=== PATIENT | male | born 1950 | race Caucasian/White ===

== ENCOUNTER 2018-03-11 15:28 | Inpatient (IN) | payer OTHER, MEDICAID ==
--- NOTE | 2018-03-11 15:24 | EDPHY ---
HPI/HX/ROS/PE/MDM Narrative: CHIEF COMPLAINT: Respiratory failure HISTORY OF PRESENT ILLNESS: The patient is a 67 y/o male arriving emergent via EMS for respiratory failure. Per EMS the patient was found unresponsive, pale, and cyanotic on a park bench. Initially the patient was vomiting blood from his airway, had clotted blood in his airway, and had O2Sats in the low 50's. He was tachycardic. The patient's BGL was 80 while en route. An IO was established in his right lower leg, Narcan was given with no change in status, and an OPA and NPA were placed as a [place] Airway was unable to be placed. The patient has been bucking at the OPA. The patient's skin color is now more pink than it was initially. Per prior medical records, this patient was seen in this emergency department on 02/22/18 for alcohol intoxication and in 2017 for abdominal pain. REVIEW OF SYSTEMS: Unable to obtain secondary to patient's mental status PAST MEDICAL HISTORY: Alcoholism SOCIAL HISTORY: Transient, single, not employed VITAL SIGNS: Reviewed by me GENERAL: Patient is face and head is covered with blood. He is agitated, not following simple commands. Patient is coughing and gagging on blood. Well- developed and well-nourished. HEENT: Atraumatic. Eyes: Left pupil is 3mm and reactive. Right pupils is 3mm and not reactive but cloudy. No icterus, bilateral scleral injection. Mouth: angioedema in posterior pharynx, uvula, and supraglottic area. Gag appears to be intact. Neck: swollen with no adenopathy. LUNGS: Bronchial breath sounds throughout, no rhonchi or rales. CARDIAC: Tachycardic, no rubs, murmurs or gallops. ABDOMEN: Obese, soft, nontender, nondistended, bowel sounds normal. RECTAL: Yellow stool present. BACK: No CVA tenderness. EXTREMITIES: No trauma. No edema. Range of motion is normal throughout. NEURO: Somnolent, not following commands, moving head around, grossly nonfocal. SKIN: Cyanotic from the upper chest and up across his face. PSYCHIATRIC: Unable to assess. Portions of this note were transcribed by a medical affairs manager. I personally performed a history, physical exam, medical decision making, and confirmed accuracy of information the transcribed note. ED Course: The patient is a 50 y/o male arriving emergent via EMS for respiratory failure. Per EMS the patient was found unresponsive with clotted blood in his airway on a park bench. An OPA and NPA were placed, but an advanced airway was unable to be placed as the patient's jaw was clamped down and he was vomiting blood. On exam the patient has bronchial breath sounds throughout, but he is breathing on his own. He is moving his head around, but is not moving any of his extremities. He is also cyanotic from the upper chest and across his face. He has blood and angioedema in his posterior pharynx, uvula, and supraglottic area. His pupils are both 3mm, but the right one is not reactive and cloudy. 1526: I met EMS upon arrival 1528: HR 132, O2sats 95 on bag valve, BP 205/190 1530: I will intubate this patient to protect his airway. Procedure: Rapid sequence intubation. Indication for the procedure was airway protection. The patient was preoxygenated with 100% oxygen by face mask. The patient was given the following IV medications: 20 mg IV Etomidate and 125 mg IV succinylcholine. The patient was orally endotracheally intubated under direct visualization with a 7.5 ETT utilizing the glide scope. Patient's supraglottic airway was angio edematous. Vocal cords were visible and the ET tube was placed through the cords on the 1st pass. Tracheal intubation was confirmed with misting on the tube; breath sounds were auscultated equally bilaterally; appropriate color change with [place] End Tidal CO2 detector. Chest X-ray shows ETT was slightly deep so it was moved back to be in good position. There is also scattered atelectasis on the chest x-ray. The procedure was performed by myself, Dr. Hassan. 1531: HR 113, O2Sats 94, BP 171/141 1535: 125 mg IV Solu-Medrol and 50 mg IV Benadryl administered for patient's angioedema. Labs, EKG, head CT, c-spine CT, and chest CT ordered. 1536: 12-LEAD EKG: Please see the full report in [facility]. My interpretation: Sinus tachycardia with a rate of 133, borderline repolarization abnormality in diffuse leads. 1537: HR 138, O2Sats 99, BP 212/126 1556: Patient's lactate is 7.7 and his creatinine is 1.4; further lab results still pending. 1617: Reassessed patient as he has returned from CT. He has blood coming out of his nose and around his mouth. I performed a rectal exam to evaluate for a gastrointestinal source of bleeding. This was negative for gross blood. Sent for occult blood which was also negative. 1633: I spoke with the radiologist regarding patient's CT findings. There are no acute findings on his head CT. His C-spine CT reveals diffuse mucosal thickening and edema in the pharynx. The chest CT reveals fluid in the right lower lobe, atelectasis, and a hiatal hernia. CT of the chest most likely is indicative of aspiration pneumonia. CT scan of the chest with cuts going onto the neck demonstrated diffuse mucosal thickening and edema of the hypopharynx and the airway to the level of the cords. There is no abscess seen. 1640: I consulted with Dr. Escalante, hospitalist, who agrees to admit this patient. Patients blood alcohol level is 399. Flagyl, Ceftriaxone, and IV NS administered for possible aspirational pneumonia, as well as to cover the patient's upper airway as a source of potential infection. Blood cultures ordered. 1730: Reassessed patient, he is still tachycardic. Patient be transferred to the floor. Critical care time spent by me, Dr. Hassan exclusively with this patient was 45 minutes, exclusive of PA time and exclusive of procedures. The organ system at risk was respiratory, airway, and I gave IVF, antibiotics, performed intubation to prevent worsening of the patients condition. Critical care time included obtaining history, performing a physical exam, bedside monitoring of interventions, collecting and interpreting tests and discussion with consultants but not including time spent performing procedures. MDM: Differential diagnoses for the patient's symptom complex was considered including but not limited to respiratory failure, aspiration, angioedema related to medications, allergic reaction, infectious cause of upper airway edema, drug or alcohol use. - Data Points Imaging Results: Imaging Impressions Chest X-Ray 03/11/18 15:31 Impression: 1. Endotracheal tube tip 2 cm above the nilay. 2. Peribronchial thickening, which could be related to fluid overload or bronchitis, with mild basilar atelectasis. Head CT 03/11/18 15:42 Impression: Moderate periventricular white matter disease; otherwise negative noncontrast CT of the head. Results called to Dr. Mary Hassan at 4:30 PM at the time of the interpretation. Cervical Spine CT 03/11/18 15:47 Impression: 1. Negative noncontrast CT of the cervical spine. Results called to Dr. Hassan at 4:30 PM. Imaging: Discussed imaging studies w/ call center representative Radiologist, I viewed and interpreted images myself Laboratory Results: Laboratory Results 03/11/18 15:33 03/11/18 15:33 03/11/18 03/11/18 03/11/18 16:25 16:21 15:46 WBC RBC Hgb POC Hgb Hct POC Hct MCV MCH MCHC RDW Plt Count MPV Neut % (Auto) Lymph % (Auto) [place] % (Auto) Eos % (Auto) Baso % (Auto) Nucleat RBC Rel Count Absolute Neuts (auto) Absolute Lymphs (auto) Absolute Monos (auto) Absolute Eos (auto) Absolute Basos (auto) Absolute Nucleated RBC Immature Gran % Immature Gran # RBC/WBC/PLT Morphology Platelet Estimate Oval Macrocytes PT INR Puncture Site RIGHT RADIAL Patient Temperature 34.6 DEGREES DEGREES pCO2 34 mmHg mmHg (34-38) pO2 340 mmHg H mmHg (65-75) Total CO2 14 mEq/L L mEq/L (23-27) ABG pH 7.20 L (7.35-7.45) ABG PO2/FiO2 Ratio 340 RATIO RATIO ABG HCO3 13 mEq/L L mEq/L (22-26) ABG O2 Saturation 99 % H % (92-95) ABG Base Excess -14.5 mEq/L L mEq/L (-2.5-2.5) ABG Lactic Acid 6.8 mmol/L H mmol/L (0.5-1.6) VBG Lactic Acid O2 Concentration % 100 % % (0-100) Respiration Rate 14 Set Respiration Rate 14 Assist Control YES Inspiratory Time 0.9 SECS SECS Tidal Volume 600 End Tidal CO2 23 PEEP 5 POC Sodium Sodium POC Potassium Potassium POC Chloride Chloride Carbon Dioxide Anion Gap POC BUN BUN Creatinine POC Creatinine Estimated GFR Glucose POC Glucose Calcium Magnesium Total Bilirubin Conjugated Bilirubin Unconjugated Bilirubin AST ALT Alkaline Phosphatase POC Troponin I NT-Pro-B Natriuret Pep 65 pg/mL pg/mL (0-125) Total Protein Albumin Lipase Urine Color Urine Appearance Urine pH Ur Specific [place] Urine Protein Urine Ketones Urine Blood Urine Nitrate Urine Bilirubin Urine Urobilinogen Ur Leukocyte Esterase Urine RBC Urine WBC Ur Epithelial Cells Urine Bacteria Hyaline Casts Urine Mucus Urine Glucose Stool Occult Bld Scrn NEGATIVE (NEGATIVE) Urine Opiates Screen Urine Barbiturates Ur Phencyclidine Scrn Ur Amphetamines Screen U Benzodiazepines Scrn Urine Cocaine Screen U Marijuana (THC) Screen Ethyl Alcohol 03/11/18 03/11/18 03/11/18 15:46 15:46 15:46 WBC RBC Hgb POC Hgb Hct POC Hct MCV MCH MCHC RDW Plt Count MPV Neut % (Auto) Lymph % (Auto) [place] % (Auto) Eos % (Auto) Baso % (Auto) Nucleat RBC Rel Count Absolute Neuts (auto) Absolute Lymphs (auto) Absolute Monos (auto) Absolute Eos (auto) Absolute Basos (auto) Absolute Nucleated RBC Immature Gran % Immature Gran # RBC/WBC/PLT Morphology Platelet Estimate Oval Macrocytes PT 13.2 SEC SEC (12.0-15.0) INR 0.98 (0.83-1.16) Puncture Site Patient Temperature pCO2 pO2 Total CO2 ABG pH ABG PO2/FiO2 Ratio ABG HCO3 ABG O2 Saturation ABG Base Excess ABG Lactic Acid VBG Lactic Acid 7.7 mmol/L H mmol/L (0.7-2.1) O2 Concentration % Respiration Rate Set Respiration Rate Assist Control Inspiratory Time Tidal Volume End Tidal CO2 PEEP POC Sodium Sodium POC Potassium Potassium POC Chloride Chloride Carbon Dioxide Anion Gap POC BUN BUN Creatinine POC Creatinine Estimated GFR Glucose POC Glucose Calcium Magnesium Total Bilirubin Conjugated Bilirubin Unconjugated Bilirubin AST ALT Alkaline Phosphatase POC Troponin I NT-Pro-B Natriuret Pep Total Protein Albumin Lipase Urine Color Urine Appearance Urine pH Ur Specific [place] Urine Protein Urine Ketones Urine Blood Urine Nitrate Urine Bilirubin Urine Urobilinogen Ur Leukocyte Esterase Urine RBC Urine WBC Ur Epithelial Cells Urine Bacteria Hyaline Casts Urine Mucus Urine Glucose Stool Occult Bld Scrn Urine Opiates Screen Urine Barbiturates Ur Phencyclidine Scrn Ur Amphetamines Screen U Benzodiazepines Scrn Urine Cocaine Screen U Marijuana (THC) Screen Ethyl Alcohol 399 mg/dL H mg/dL (0-10) 03/11/18 03/11/18 03/11/18 15:45 15:43 15:36 WBC RBC Hgb POC Hgb 17.0 gm/dL gm/dL (13.7-17.5) Hct POC Hct 50 % % (40-51) MCV MCH MCHC RDW Plt Count MPV Neut % (Auto) Lymph % (Auto) [place] % (Auto) Eos % (Auto) Baso % (Auto) Nucleat RBC Rel Count Absolute Neuts (auto) Absolute Lymphs (auto) Absolute Monos (auto) Absolute Eos (auto) Absolute Basos (auto) Absolute Nucleated RBC Immature Gran % Immature Gran # RBC/WBC/PLT Morphology Platelet Estimate Oval Macrocytes PT INR Puncture Site Patient Temperature pCO2 pO2 Total CO2 ABG pH ABG PO2/FiO2 Ratio ABG HCO3 ABG O2 Saturation ABG Base Excess ABG Lactic Acid VBG Lactic Acid O2 Concentration % Respiration Rate Set Respiration Rate Assist Control Inspiratory Time Tidal Volume End Tidal CO2 PEEP POC Sodium 140 mEq/L mEq/L (135-145) Sodium POC Potassium 3.5 mEq/L mEq/L (3.3-5.0) Potassium POC Chloride 104 mEq/L mEq/L (97-110) Chloride Carbon Dioxide Anion Gap POC BUN 11 mg/dL mg/dL (7-23) BUN Creatinine POC Creatinine 1.4 mg/dL H mg/dL (0.7-1.3) Estimated GFR Glucose POC Glucose 82 mg/dL mg/dL (70-100) Calcium Magnesium Total Bilirubin Conjugated Bilirubin Unconjugated Bilirubin AST ALT Alkaline Phosphatase POC Troponin I 0.02 ng/mL ng/mL (0.00-0.08) NT-Pro-B Natriuret Pep Total Protein Albumin Lipase Urine Color YELLOW Urine Appearance HAZY Urine pH 5.0 (5.0-7.5) Ur Specific [place] 1.012 (1.002-1.030) Urine Protein 2+ H (NEGATIVE) Urine Ketones TRACE H (NEGATIVE) Urine Blood 1+ H (NEGATIVE) Urine Nitrate NEGATIVE (NEGATIVE) Urine Bilirubin NEGATIVE (NEGATIVE) Urine Urobilinogen NEGATIVE EU EU (0.2-1.0) Ur Leukocyte Esterase NEGATIVE (NEGATIVE) Urine RBC 3-5 /hpf H /hpf (0-3) Urine WBC 5-10 /hpf H /hpf (0-3) Ur Epithelial Cells TRACE /lpf /lpf (NONE-1+) Urine Bacteria TRACE /hpf H /hpf (NONE SEEN) Hyaline Casts 5-15 /lpf /lpf (0-1) Urine Mucus 1+ /lpf /lpf (NONE-1+) Urine Glucose NEGATIVE (NEGATIVE) Stool Occult Bld Scrn Urine Opiates Screen NEGATIVE ng/mL ng/mL (NEGATIVE) Urine Barbiturates NEGATIVE ng/mL ng/mL (NEGATIVE) Ur Phencyclidine Scrn NEGATIVE ng/mL ng/mL (NEGATIVE) Ur Amphetamines Screen NEGATIVE ng/mL ng/mL (NEGATIVE) U Benzodiazepines Scrn NEGATIVE ng/mL ng/mL (NEGATIVE) Urine Cocaine Screen NEGATIVE ng/mL ng/mL (NEGATIVE) U Marijuana (THC) Screen NEGATIVE ng/mL ng/mL (NEGATIVE) Ethyl Alcohol 03/11/18 03/11/18 15:33 15:33 WBC 11.25 10^3/uL H 10^3/uL (3.80-9.50) RBC 4.28 10^6/uL L 10^6/uL (4.40-6.38) Hgb 15.2 g/dL g/dL (13.7-17.5) POC Hgb Hct 46.2 % % (40.0-51.0) POC Hct MCV 107.9 fL H fL (81.5-99.8) MCH 35.5 pg H pg (27.9-34.1) MCHC 32.9 g/dL g/dL (32.4-36.7) RDW 13.9 % % (11.5-15.2) Plt Count 320 10^3/uL 10^3/uL (150-400) MPV 9.6 fL fL (8.7-11.7) Neut % (Auto) 36.5 % L % (39.3-74.2) Lymph % (Auto) 50.8 % H % (15.0-45.0) [place] % (Auto) 6.0 % % (4.5-13.0) Eos % (Auto) 2.9 % % (0.6-7.6) Baso % (Auto) 1.2 % % (0.3-1.7) Nucleat RBC Rel Count 0.4 % H % (0.0-0.2) Absolute Neuts (auto) 4.11 10^3/uL 10^3/uL (1.70-6.50) Absolute Lymphs (auto) 5.72 10^3/uL H 10^3/uL (1.00-3.00) Absolute Monos (auto) 0.68 10^3/uL 10^3/uL (0.30-0.80) Absolute Eos (auto) 0.33 10^3/uL 10^3/uL (0.03-0.40) Absolute Basos (auto) 0.14 10^3/uL H 10^3/uL (0.02-0.10) Absolute Nucleated RBC 0.05 10^3/uL H 10^3/uL (0-0.01) Immature Gran % 2.6 % H % (0.0-1.1) Immature Gran # 0.29 10^3/uL H 10^3/uL (0.00-0.10) RBC/WBC/PLT Morphology TNP Platelet Estimate ADEQUATE (ADEQ) Oval Macrocytes 3+ H PT INR Puncture Site Patient Temperature pCO2 pO2 Total CO2 ABG pH ABG PO2/FiO2 Ratio ABG HCO3 ABG O2 Saturation ABG Base Excess ABG Lactic Acid VBG Lactic Acid O2 Concentration % Respiration Rate Set Respiration Rate Assist Control Inspiratory Time Tidal Volume End Tidal CO2 PEEP POC Sodium Sodium 141 mEq/L mEq/L (135-145) POC Potassium Potassium 4.1 mEq/L mEq/L (3.3-5.0) POC Chloride Chloride 103 mEq/L mEq/L (97-110) Carbon Dioxide 18 mEq/l L mEq/l (22-31) Anion Gap 20 mEq/L H mEq/L (6-14) POC BUN BUN 12 mg/dL mg/dL (7-23) Creatinine 1.1 mg/dL mg/dL (0.7-1.3) POC Creatinine Estimated GFR > 60 Glucose 81 mg/dL mg/dL (70-100) POC Glucose Calcium 9.0 mg/dL mg/dL (8.5-10.4) Magnesium 2.5 mg/dL H mg/dL (1.6-2.3) Total Bilirubin 0.5 mg/dL mg/dL (0.1-1.4) Conjugated Bilirubin 0.4 mg/dL mg/dL (0.0-0.5) Unconjugated Bilirubin 0.1 mg/dL mg/dL (0.0-1.1) AST 618 IU/L H IU/L (17-59) ALT 311 IU/L H IU/L (21-72) Alkaline Phosphatase 125 IU/L IU/L (38-126) POC Troponin I NT-Pro-B Natriuret Pep Total Protein 8.2 g/dL g/dL (6.3-8.2) Albumin 5.0 g/dL g/dL (3.5-5.0) Lipase 198 IU/L IU/L (23-300) Urine Color Urine Appearance Urine pH Ur Specific [place] Urine Protein Urine Ketones Urine Blood Urine Nitrate Urine Bilirubin Urine Urobilinogen Ur Leukocyte Esterase Urine RBC Urine WBC Ur Epithelial Cells Urine Bacteria Hyaline Casts Urine Mucus Urine Glucose Stool Occult Bld Scrn Urine Opiates Screen Urine Barbiturates Ur Phencyclidine Scrn Ur Amphetamines Screen U Benzodiazepines Scrn Urine Cocaine Screen U Marijuana (THC) Screen Ethyl Alcohol Medications Given: Metronidazole/Sodium Chloride (Flagyl 500 Mg (Premix)) 100 mls @ 100 mls/hr IV EDNOW ONE PRN Reason: Protocol Stop: 03/11/18 18:04 Last Admin: 03/11/18 17:29 Dose: 100 mls Discontinued Medications Diphenhydramine HCl (Benadryl Injection) 50 mg IVP EDNOW ONE Stop: 03/11/18 16:17 Last Admin: 03/11/18 15:50 Dose: 50 mg Etomidate (Etomidate) 20 mg IVP EDNOW ONE Stop: 03/11/18 16:17 Last Admin: 03/11/18 15:32 Dose: 20 mg Sodium Chloride (Ns) 1,000 mls @ 0 mls/hr IV ONCE ONE; Wide Open PRN Reason: Protocol Stop: 03/11/18 15:49 Last Admin: 03/11/18 15:32 Dose: 1,000 mls Propofol (Diprivan 10 Mg/Ml (Premix)) 100 mls @ 0 mls/hr IV CONT STELLA; Titrate PRN Reason: Protocol Stop: 09/07/18 16:29 Last Admin: 03/11/18 16:20 Dose: 100 mls Sodium Chloride (Ns) 1,000 mls @ 0 mls/hr IV ONCE ONE PRN Reason: Wide Open Stop: 03/11/18 16:28 Last Admin: 03/11/18 17:01 Dose: Not Given Sodium Chloride (Ns) 2,300 mls @ 4,600 mls/hr 30 ml/kg infuse over 30 min ( 2300 ml) IV EDNOW ONE PRN Reason: Protocol Stop: 03/11/18 17:18 Last Admin: 03/11/18 16:00 Dose: 2,300 mls Ampicillin Sodium/Sulbactam (Sodium 3 gm/ Sodium Chloride) 100 mls @ 200 mls/ hr IV EDNOW ONE PRN Reason: Protocol Stop: 03/11/18 17:19 Last Admin: 03/11/18 17:35 Dose: Not Given Methylprednisolone Sodium Succinate (Solu-Medrol) 125 mg IVP EDNOW ONE Stop: 03/11/18 16:17 Last Admin: 03/11/18 15:50 Dose: 125 mg Succinylcholine Chloride (Quelicin) 125 mg IVP EDNOW ONE Stop: 03/11/18 16:17 Last Admin: 03/11/18 15:32 Dose: 125 mg Vecuronium [place] (Vecuronium [place]) 8 mg IV EDNOW ONE Stop: 03/11/18 16:28 Last Admin: 03/11/18 16:13 Dose: 8 mg Point of Care Test Results: Chemistry 03/11/18 03/11/18 15:43 15:36 POC Sodium 140 mEq/L mEq/L (135-145) POC Potassium 3.5 mEq/L mEq/L (3.3-5.0) POC Chloride 104 mEq/L mEq/L (97-110) POC BUN 11 mg/dL mg/dL (7-23) POC Creatinine 1.4 mg/dL H mg/dL (0.7-1.3) POC Glucose 82 mg/dL mg/dL (70-100) POC Troponin I 0.02 ng/mL ng/mL (0.00-0.08) Blood Gas/Lactic Acid-Arterial 03/11/18 16:25 Tidal Volume 600 ISTAT H&H 03/11/18 15:36 POC Hgb 17.0 gm/dL gm/dL (13.7-17.5) POC Hct 50 % % (40-51) General Time Seen by Provider: 03/11/18 15:26 Initial Vital Signs: Initial Vital Signs Temperature (C) 34.8 C L 03/11/18 15:25 Heart Rate 129 H 03/11/18 15:25 Respiratory Rate 24 H 03/11/18 15:25 Blood Pressure 171/141 H 11/22/18 15:25 O2 Sat (%) 99 03/11/18 15:25 O2 Delivery Mode Ventilator O2 (L/minute) 15 Allergies/Adverse Reactions: No Known Allergies Allergy (Unverified 03/11/18 15:38) Home Medications: Medication Instructions Recorded Fluticasone Nasal [Flonase Nasal 1 - 2 sprays NASAL BID PRN 03/11/18 [place] (RX)] Lisinopril [Lisinopril] 20 mg PO DAILY 03/11/18 Omeprazole [Omeprazole] 20 mg PO DAILY 03/11/18 Departure - Departure Disposition: [facility] Inpatient Acute Clinical Impression: Severe sepsis, airway edema Respiratory failure Qualifiers: Chronicity: acute Respiratory failure complication: hypoxia Qualified Code(s): J96.01 - Acute respiratory failure with hypoxia Aspiration pneumonia Qualifiers: Aspiration pneumonia type: unspecified Laterality: right Lung location: lower lobe of lung Qualified Code(s): J69.0 - Pneumonitis due to inhalation of food and vomit Condition: Serious Report Scribed for: Mary Hassan Report Scribed by: Smitha Ashley Date of Report: 03/11/18 Time of Report: 15:23
[2018-03-11] MEDS ORDERED: methylPREDNISolone SOD SUCC 125 MG/2 ML VIAL ONE ×2 (15:35→16:01)
[2018-03-11] MEDS ORDERED: PROPOFOL/EMULSION 1,000 MG/100 ML BOTTLE IV ONE (15:39)
[2018-03-11 15:42] LABS: PLATELET COUNT 320 10^3/uL (150-400)
[2018-03-11] MEDS ORDERED: BENZOCAINE UNIT DOSE SPRAY HURRICAINE MM ONE (15:47)
[2018-03-11] MEDS ORDERED: NS 1,000 ML IV ONE ×2 (15:48→16:27)
[2018-03-11] MEDS ORDERED: IOPAMIDOL (ISOVUE 370) 100 ML BTL IV ONE (15:52)
[2018-03-11] MEDS ORDERED: ETOMIDATE 40 MG/20 ML INJ ONE (16:03)
[2018-03-11] MEDS ORDERED: SUCCINYLCHOLINE CHLORIDE 200 MG/10 ML SYR IVP ONE ×2 (16:03→16:16)
[2018-03-11] MEDS ORDERED: VECURONIUM BROMIDE 10 MG VIAL ONE (16:07)
[2018-03-11 16:11] LABS: INR 0.98 (0.83-1.16); PROTIME(PATIENT) 13.2 SEC (12.0-15.0)
[2018-03-11] MEDS ORDERED: methylPREDNISolone SOD SUCC 125 MG/2 ML VIAL IVP ONE (16:16)
[2018-03-11] MEDS ORDERED: ETOMIDATE 40 MG/20 ML INJ IVP ONE (16:16)
[2018-03-11] MEDS ORDERED: VECURONIUM BROMIDE 10 MG VIAL IV ONE (16:27)
[2018-03-11] MEDS ORDERED: PROPOFOL/EMULSION 100 ML IV SCH (16:30)
[2018-03-11] MEDS ORDERED: NS 2,300 ML IV ONE (16:49)
[2018-03-11] MEDS ORDERED: AMPICILLIN/SULBACTAM 3 GM in NS 100 ML IV ONE (16:50)
[2018-03-11] MEDS ORDERED: ONDANSETRON 4 MG/2 ML VIAL IVP PRN (17:02)
[2018-03-11] MEDS ORDERED: ONDANSETRON DISINTEGRATING 4 MG TAB PO PRN (17:02)
--- NOTE | 2018-03-11 17:49 | GHP ---
DATE OF ADMISSION: 03/11/2018 CHIEF COMPLAINT: Respiratory failure. HISTORY OF PRESENT ILLNESS: This is a 67-year-old man who was found on a park bench by a few homeles s people in respiratory distress. Paramedics were called and tried to get a Schuyler airway placed in th e field. They were unable to place an airway, although it sounds as though there were significant at tempts made. He was, thus, brought into the emergency room and intubated by Dr. Hassan. When she intubated him, he had significant blood coming out of his mouth. She did not find 1 very clear sourc e. She did find significant diffuse mucosal edema; however, she felt this was consistent with angioe narendra. It sounds as though he was moving all extremities when he was brought in, although he never re sponded to commands. He is unclear exactly how long he was in respiratory distress before he was fou nd. He was treated with steroids, as well as antihistamines in the emergency department. PAST MEDICAL/SURGICAL HISTORY: 1. Hypertension; he is on lisinopril. 2. Alcohol abuse. MEDICATIONS: Please see medication reconciliation. ALLERGIES: No known drug allergies. FAMILY HISTORY: Unobtainable given patient's condition. SOCIAL HISTORY: He drinks alcohol. REVIEW OF SYSTEMS: Unobtainable given the patient's condition. PHYSICAL EXAM: VITAL SIGNS: Blood pressure 146/87. His blood pressure was as high as 212/126. His pulse is currently 112. He is currently on a ventilator and sedated. His temperature was 34.6. GE NERAL: The patient is an intubated and sedated gentleman. HEENT: Shows him to have significant blo od all around the exterior part of his mouth. Internal part of his mouth is difficult to examine. H e does have an ET tube in place. He does have significant right-sided neck edema. CARDIOVASCULAR: S hows regular rate and rhythm. No murmurs, rubs, or gallops. PULMONARY: Lungs clear to auscultation bilaterally. ABDOMEN: Soft. I do not hear any bowel sounds, however, but he has no guarding, rebo und, no peritoneal signs. It is nonrigid. SKIN: Shows no rash. : Shows a Goodman in place. NEUR OLOGIC: Shows him to be intubated and sedated. PSYCHIATRIC: Unobtainable given his condition. LABS: White count is 11.25, MCV is 107, hemoglobin is 15, and platelets are 320. INR 0.9. Initial venous lactate is 7.7. His blood gas shows a significant metabolic acidosis with a pH of 7.2. His b icarb is 18. His creatinine is 1.1. His AST is 618, ALT is 311. Urinalysis shows 5-10 whites. Stoo ls negative for occult blood. Alcohol level is 399. Other tox screening is negative. DATA: 1. Discussed with Dr. Hassan. 2. His cervical spine CT is negative. 3. Chest CT, there is no preliminary read yet; however, the report is that he has significant neck e narendra. 4. Head CT shows moderate periventricular white matter disease, otherwise negative. 5. ECG shows sinus tachycardia. There is nothing clearly ischemic here. He does have some mild ST depressions which are probably rate related in leads V3 through V5. 6. Chest x-ray, which I personally reviewed and interpreted, shows ET tube with tip at the nilay. IMPRESSION AND PLAN: This is a critically ill 67-year-old man. 1. Acute respiratory failure: Unclear if this is due to angioedema or something else. He did have diffuse mucosal thickening which may represent angioedema (he is on an SENIA inhibitor) versus failed a ttempted intubation in the field. At this point, fortunately, he has an airway in place. We will co ntinue ventilator support. Extubation may be difficult given this complicated history. He may need ENT consult to evaluate for mucosal edema prior to extubation. This has not been obtained at this ti me. 2. Possible aspiration pneumonia: Right lower lobe is somewhat questionable on my read. Given how sick he is, we will place him on antibiotics for aspiration pneumonia. We will also cover the diffus e mucosal thickening which was seen during intubation as well with Rocephin and Flagyl. 3. Possible angioedema: He is on an SENIA inhibitor. Does not have any urticaria which would go maliha g with an allergic reaction. SENIA inhibitor induced angioedema. Care is supportive. However, given his degree of illness, I think treating him with steroids, as well as antihistamines. I will not giv e him epinephrine, as he is tachycardic and borderline hypotensive, already has an airway in place. Certainly would hold his SENIA inhibitor. 4. Severe lactic acidosis: Presumably, he was hypoxic prior to presentation, which likely explains this. We will trend his lactates for now. His abdomen was quite soft and not rigid; however, I did not appreciate any bowel sounds. We will follow this closely. 5. Suspected oral hemorrhage: His hemoglobin is normal. This is stopped at this point. I have not pasquale to indicate a true GI bleed at this point. We will trend his hemoglobins for now. 6. Hepatitis: This is either alcoholic or due to his hypoxia. We will repeat his LFTs in the [facility]. 7. Alcohol abuse: Certainly, he is going to be at risk for withdrawal. Currently, he is intubated on propofol which is appropriate seizure prophylaxis for now. This may overall complicate his care. BILLING: I spent a total of 55 minutes of critical care time managing respiratory failure requiring intubation. /[id number]/MODL
[2018-03-11] MEDS: NS 1,000 ML IV SCH (18:15)
[2018-03-11] MEDS ORDERED: SODIUM BICARBONATE 50 MEQ/50 ML SYR IVP ONE (18:37)
[2018-03-11] MEDS ORDERED: PROTOCOL POTASSIUM 1 DOSE MISC PRN (18:38)
[2018-03-11] MEDS ORDERED: PROTOCOL K PHOSPHATE 1 DOSE IV PRN (18:38)
[2018-03-11] MEDS ORDERED: PROTOCOL MAGNESIUM 1 DOSE IV PRN (18:38)
[2018-03-11] MEDS ORDERED: ENALAPRILAT DIHYDRATE 1.25 MG/ML VIAL IVP PRN (18:52)
[2018-03-11] MEDS ORDERED: LABETALOL HCL 20 MG/4 ML INJ IVP PRN (18:52)
[2018-03-11] MEDS ORDERED: fentaNYL/NACL 100 ML IV SCH (19:00)
[2018-03-11] MEDS ORDERED: DEXMEDETOMIDINE HCL 400 MCG in NS 100 ML IV SCH (19:00)
--- NOTE | 2018-03-11 19:04 | GCON ---
PULMONARY CRITICAL CARE CONSULTATION DATE OF CONSULTATION: 03/11/2018 REASON FOR CONSULTATION: Respiratory failure, ventilatory management in a chronic alcoholic who presents with a blood alcohol level of approximately 400 and upper airway bleeding associated with respiratory failure. HISTORY: The patient is a 67-year-old homeless alcoholic. He was on a park bench and noted to be a respiratory distress. Apparently, he had blood in his airways. Paramedics tried to place an airway, but could not secondary to possible blood clots. He was brought to the emergency room and intubated in the emergency department. Significant blood was in the mouth and apparently the posterior oropharynx/larynx was quite edematous, possibly suggesting angioedema. He received propofol and paralytics for intubation. He was also given steroids and antihistamines. He vomited gastric materials as well as some possible blood? He probably aspirated. He was brought to the intensive care unit unresponsive initially, but has been subsequently seen to move purposefully. He is on the ventilator and will be sedated. A Goodman catheter is in place. An NG tube was placed by myself in the ICU. This will be hooked to suction. Peripheral IVs are in place. PAST MEDICAL HISTORY: Remarkable for chronic alcohol abuse and hypertension. He is apparently followed at the [facility]. MEDICATIONS: Other listed medications include omeprazole and fluticasone. SOCIAL HISTORY: Homeless, stays at the senior care. Probably smokes. Alcohol as above. FAMILY HISTORY: Unobtainable. DRUG ALLERGIES: No known drug allergies per the chart. PHYSICAL EXAMINATION: GENERAL: Reveals a gentleman who is intubated on the ventilator. vital signs: Blood pressure currently is 160/90, heart rate 115 with sinus tachycardia on the monitor. Admission temperature was 36.5 axillary with a recent rectal temperature of 34.8. Saturations are 100% on 100% FiO2. HEENT: Remarkable for the endotracheal tube and new nasogastric tube. Pupils are equal. There is a cataract on the right, none on the left. There is no active bleeding from the nose or from the oral cavity at this point. Posterior oral cavity is difficult to evaluate. It does appear to be somewhat edematous. There are no signs of trauma about the head or neck. There is mild redness to the skin around the neck and upper chest without any ecchymoses. NECK: There is no jugular venous distention, lymphadenopathy, or obvious thyromegaly. CHEST: Clear and coarse anteriorly. Breath sounds are somewhat diminished. A few rhonchi are noted. There are no wheezes. There are no significant rales appreciated. HEART: Tachycardic. There is a soft systolic murmur, no obvious gallop. ABDOMEN: Soft. No liver can be palpated, no spleen. There is no obvious tenderness. Bowel sounds are present. A Goodman catheter is in place with good urine output. EXTREMITIES: Unremarkable for edema or obvious cords. SKIN: Somewhat dry with dirt about the hands, feet and legs. DATABASE: Chest x-ray shows the endotracheal tube to be somewhat deep. There are nonspecific increased lung markings. Heart size appears relatively normal. CT scan of the head is unremarkable for acute pathology. Some white matter changes are noted. Cervical spine CT is negative. CT scan of the chest has been done but not yet read. Per my reading, there is a small area of infiltrate or atelectasis at the posterior right base. There are no other significant infiltrates. Airway thickening is noted, especially in the mid lung on the right. Motion artifact is present. There are no obvious pulmonary emboli. Some cystic/emphysematous changes are present. LABORATORY: Arterial blood gas on the ventilator shows a pH of 7.20, pCO2 of 34 , and pO2 of 340. Base excess is -14. This was on 100% with a respiratory rate of 14 and a tidal volume [place] 600[place] [address], hematocrit 46 to 50. Platelets are 320,000. PT and INR on admission are normal. Basic metabolic panel shows a sodium of 140, potassium at 3.5, CO2 of 18, an anion gap of 20, BUN of 11 with a creatinine of 1.4. Glucose is 82. Magnesium 2.5. Calcium 9.0. AST and ALT are elevated at 618 and 311 respectively. Troponin and BNP are both normal. Albumin is 5 with a lipase of 198. Urinalysis shows some red blood cells and white blood cells, trace bacteria and 2+ protein. Stool for occult blood is negative. Blood alcohol on admission is 399. Tox screen is negative. ASSESSMENT: 1. Acute respiratory failure. The exact reason and circumstances leading to his respiratory failure are unclear. He did have blood in the upper airways from an unknown source and there was significant edema. The latter may have been secondary to primary angioedema or perhaps secondary to attempted intubation and trauma in the field? In any case, the patient did subsequently vomit and aspirate. He also likely aspirated blood. Respiratory failure is associated with a metabolic acidosis. Lactate is high on admission, 7.7. This is most likely secondary to arrest, not sepsis. 2. Upper airway blood. It is unclear if this is coming from the nose or oropharynx, or possibly from an upper GI source like varices, gastric ulceration , or gastritis. Hematocrit is stable, high. There is no evidence at this time of significant blood loss. Serial hematocrits will be obtained. If needed, GI consultation for upper endoscopy could be requested. 3. Acute intoxication. History of chronic alcohol abuse. At high risk for alcohol withdrawal. 4. History of hypertension. Blood pressure is elevated on admission. P.r.n. IV antihypertensives will be ordered. PLAN AND RECOMMENDATIONS: The patient will be kept on the ventilator and supported in the intensive care unit. Intravenous fluids will be given. He will be sedated per ventilatory protocols. Ativan will be given p.r.n. over the first 12-24 hours and then will likely be changed to scheduled Ativan. The CIWA protocol could not be utilized while he is on the ventilator. Precedex will be ordered and used if needed. Hemoglobin and hematocrit will be followed. Protonix will be given. Deep venous thrombosis prophylaxis will be initiated with enoxaparin. Bicarbonate will be given for his acidosis initially. Blood cultures have been obtained. Sputum culture will be ordered prior to the initiation of ertapenem. Bronchodilator therapies will be given. NG tube will be kept to low wall suction. Laboratory, chest x-ray and blood gases will all be followed. Labetalol will be ordered p.r.n. for increased blood pressure along with enalapril. Further plans and recommendations will be made based on his progress over the next 12-24 hours. Over 1 hr of critical care time was spent directly with the patient in management of the ventilator, respiratory failure, fluid management, alcohol withdrawal, etc. /[id number]/MODL MTDD
[2018-03-11] MEDS: LORazepam 2 MG/ML INJ IVP PRN (19:51)
[2018-03-11] MEDS: CHLORHEXIDINE GLUCONATE 15 ML UDL PO SCH (19:57)
[2018-03-11] MEDS: PROPOFOL/EMULSION 100 ML IV SCH (20:20)
[2018-03-11] MEDS: FAMOTIDINE 20 MG/NACL 50 ML IV SCH (20:57)
[2018-03-11] MEDS ORDERED: FAMOTIDINE 20 MG/NACL 50 ML IV SCH (21:00)
[2018-03-11] MEDS ORDERED: IPRATROPIUM/ALBUTEROL 3 ML DEYVIAL IH SCH (21:00)
[2018-03-11] MEDS: methylPREDNISolone SOD SUCC 125 MG/2 ML VIAL IVP SCH (21:53)
[2018-03-12] MEDS: ALBUTEROL 60 PUFFS/8 GM MDI IH SCH ×3 (00:17→08:45)
[2018-03-12] MEDS: methylPREDNISolone SOD SUCC 125 MG/2 ML VIAL IVP SCH ×3 (03:53→22:47)
[2018-03-12] MEDS: NS 1,000 ML IV SCH ×2 (05:55→15:47)
[2018-03-12] MEDS: PROPOFOL/EMULSION 100 ML IV SCH (06:34)
[2018-03-12 06:36] LABS: PLATELET COUNT 221 10^3/uL (150-400)
[2018-03-12] MEDS ORDERED: MAGNESIUM SULF 1 GM/DEXTROSE 100 ML IV ONE (07:56)
[2018-03-12] MEDS ORDERED: LIDOCAINE 1% 300 MG/30 ML SDV ONE (08:30)
[2018-03-12] MEDS: NICOTINE 21 MG/24 HR PATCH TD SCH (08:33)
[2018-03-12] MEDS: FAMOTIDINE 20 MG/NACL 50 ML IV SCH ×2 (08:36→22:46)
--- NOTE | 2018-03-12 08:38 | PDINTPN ---
Medical Office Professional Instructor Progress Note Assessment/Plan: Assessment: 67-year-old chronic alcoholic status post respiratory arrest 03/11 with blood in airways and airway edema. BAL 400 on admission. Respiratory arrest. Etiology for this remains unclear. Had blood in upper airways when found but has not continued to bleed from an upper airway source. Upper GI source remains possible. Airway swelling found when intubated in the emergency department. Possible angioedema versus edema from traumatic intubation trials pre hospitalization? Acute respiratory failure. Improved. Arterial blood gas normalized. On 40%. Tolerating CPAP weans. Chest x-ray without major infiltrates. Possibly can be extubated today however this will be done over bronchoscoped to look at upper airway edema. If significant edema still present then the endotracheal tube will be replaced. Aspiration. Documented aspiration. On antibiotics. Possible sepsis? I think this is less likely. Elevated lactate likely secondary to arrest. Cultures remain negative. On broad-spectrum antibiotics for aspiration pneumonia. COPD/emphysema. Present on admission. Severity unknown. On bronchodilator therapy. Acute intoxication, chronic alcohol abuse. At high risk for withdrawal. BAL 400 on admission. Will be placed on CIWA once extubated. On p.r.n. Ativan and starting on Precedex at this time. Alcoholic hepatitis. Anemia. Hematocrit 33.7 down from 50 on admission. Acute blood-loss coupled with fluid resuscitation likely causes. An upper GI bleed may need to be excluded. Metabolic: Hypocalcemic, hypomagnesemic this morning. On replacement protocols. Prophylaxis: On famotidine, SCDs. Plan: Bronchoscopy this morning to assess blood in secretions in airways, upper airway edema. If the latter is resolving then he will be extubated. CIWA protocol post extubation. Electrolyte replacement protocols will stay in place. Continue IV fluids, antibiotics, supportive care otherwise. Follow H&H and laboratory. Follow for recurrent bleeding. If any evidence of an upper GI bleed is present then GI will be consulted for upper endoscopy. Chest x-ray in the a.m.. 50 min of critical care time spent directly with the patient managing multiple issues as above. Not including bronchoscopy. Discussed with hospitalist, nursing, respiratory, and the ICU multi disciplinary team. Subjective: Awake and alert, responsive. Comfortable on ventilator. Objective: Vital Signs Temp Pulse Resp BP Pulse Ox 37.0 C 115 H 16 133/67 H 95 03/12/18 04:00 03/12/18 07:00 03/12/18 07:00 03/12/18 07:00 03/12/18 07:00 Microbiology 03/11/18 18:30 - Final Sputum, Induced/Suctioned Laboratory Results 03/12/18 08:00 03/12/18 06:20 03/11/18 03/12/18 03/13/18 05:59 05:59 05:59 Intake Total 4381 Output Total 2375 Balance 2005 PT 13.2 SEC (12.0-15.0) 03/11/18 15:46 INR 0.98 (0.83-1.16) 03/11/18 15:46 Laboratory Tests 03/12/18 03/12/18 03/12/18 05:30 06:20 08:00 pCO2 27 L pO2 89 H ABG pH 7.39 VBG Lactic Acid 2.9 H O2 Concentration % 50 Assist Control YES Tidal Volume 600 PEEP 5 Calcium 7.0 L Phosphorus 3.0 Magnesium 1.5 L AST 707 H ALT 465 H Albumin 3.3 L CXR: Lines and tubes in good position. Small bibasilar infiltrates present medially. Physical Exam - Physical Exam General Appearance: alert, no apparent distress, other (On vent, on propofol switching to Precedex) EENT: PERRL/EOMI, ET tube, other (NG tube to suction. No bleeding from mouth or nose.) Neck: normal inspection (No JVD) Respiratory: lungs clear (Anteriorly. Breath sounds coarse), decreased breath sounds, No normal breath sounds, No rales, No rhonchi, No wheezing Cardiac/Chest: tachycardia (Sinus) Abdomen: non-tender, soft, No normal bowel sounds (Decreased, present) Male Genitalia: other (Goodman catheter in place. Good urine output) Skin: normal color, warm/dry Extremities: No pedal edema Neuro/Psych: no motor/sensory deficits (Moves all extremities equally), No cognition abnormalities (Appears intact however difficult to fully evaluate secondary to sedation) ICD10 Worksheet Patient Problems: Problems Problem Status Onset Aspiration pneumonia Acute Respiratory failure Acute Severe sepsis Acute
[2018-03-12] MEDS: POTASSIUM Cl (KCl) 100 ML IV SCH ×3 (08:44→22:46)
[2018-03-12] MEDS: CHLORHEXIDINE GLUCONATE 15 ML UDL PO SCH ×2 (08:45→21:19)
[2018-03-12] MEDS ORDERED: LIDOCAINE 1% 300 MG/30 ML SDV MISC ONE (08:47)
[2018-03-12] MEDS ORDERED: FLUMAZENIL 0.5 MG/5 ML MDV IVP PRN (09:18)
[2018-03-12] MEDS ORDERED: PROTOCOL CALCIUM 1 DOSE IV PRN (09:25)
[2018-03-12] MEDS: LORazepam 2 MG/ML INJ IVP PRN ×4 (09:30→18:11)
--- NOTE | 2018-03-12 09:42 | ASMTCASEMG ---
Living Arrangements What is your living Answers: Alone arrangement? Who do you live with? Type Of Residence What kind of residence do Answers: House you live in? Discharge Plan Comments Coordination Status Comments Notes: Patient is a 67yo single male who was found on a park bench in respiratory distress. Paramedics were unable to place an airway and so patient was intubated upon arrival in the ED. Patient has been admitted for acute respiratory failure, aspiration pneumonia, angioedema, lactic acidosis, hepatitis, suspected oral hemorrhage. SPL has been ordered. D/C plan TBD. CM will follow. Date Signed: 03/12/2018 09:41 AM Electronically Signed By:Radhika Winchester LCSW
--- NOTE | 2018-03-12 09:47 | GPN ---
DATE OF PROCEDURE: 03/12/2018 PROCEDURE: Bronchoscopy. REASON FOR PROCEDURE: Assess secretions and blood in the airways following witnessed aspiration and assess upper airway edema, extubate if the latter is not present. PROCEDURE NOTE: The procedure was performed in the intensive care unit. Time-out was performed. Ve rbal consent was obtained from the patient who appeared to understand and nodded his head yes when th e need for the procedure was described. No intravenous sedation was required as the patient was on s edation per ventilatory protocols. 1% lidocaine was used for topical anesthesia of the airways. The fiberoptic bronchoscope was passed via an adapter on the end of the patient's endotracheal tube a nd into the distal trachea. From there, the bronchoscope was advanced into the lower tracheobronchia l tree bilaterally. The airways were generally erythematous and mildly edematous. Watery secretions were present bilaterally. There was no significant blood in the airways, and mucus was relatively m inimal in amounts without mucous plugging. No cultures were obtained. The bronchoscope was then wit hdrawn to the level of the tip of the endotracheal tube, and the endotracheal tube and bronchoscope w ere slowly withdrawn. The bronchoscope was left finally in the trachea, and the endotracheal tube wa s withdrawn into the hypopharynx. The scope was then withdrawn slowly. The upper trachea was within normal limits without any obstruction. The vocal cords were observed and were only mildly edematous . There was no evidence of laryngospasm or laryngeal obstruction. Tissues above the vocal cords wer e mildly edematous as well, but there was no evidence of significant edema or upper airway obstructio n. The bronchoscope and the endotracheal tube were thus removed. The patient tolerated the procedure well. There were no complications. Vital signs and oxygen satur ations remained normal throughout the procedure. IMPRESSION: 1. Generalized airway erythema with mild edema consistent with known aspiration. No significant blo od, bloody plugs, or mucus plugging was present. 2. Mild upper airway edema with out evidence of obstruction. 3. Successful extubation. /[id number]/MODL
[2018-03-12] MEDS: THIAMINE HCL 500 MG in NS 100 ML IV SCH (10:56)
[2018-03-12] MEDS: IPRATROPIUM/ALBUTEROL 3 ML DEYVIAL IH SCH ×3 (11:06→20:59)
--- NOTE | 2018-03-12 11:12 | PDMN ---
Medical Necessity Medical necessity: 67 PGRF Respiratory failure: 67 yo in respiratory failure requiring ventilator support, severe lactic acidosis, possible aspiration pneumonia. IP status.
--- NOTE | 2018-03-12 15:09 | HOSPPROG ---
Hospitalist Progress Note Assessment/Plan: #Acute hypoxic resp failure: intubated for airway protection with Etoh intoxication. Extubated this morning #Aspiration PNA: cont anx #ABLA: oral hemorrhage. H/H stable #Hypopharynx edema: maybe trauma from field intubation. Bronch showed mild edema #Etoh dependence: CIWA. Vice President Of Talent Management when MS improved #Toxic encephalopathy: from Etoh #Hypomagnesium/hypocalcemia: repleting #Lactic acidosis: suspect from Etoh ketoacidosis rather than infection. Afebrile. #Alcoholic hepatitis: trend #Oral hemorrhage: suspect from intubation. H/H stable #Diet: speech eval #Disp: inpatient admission for CIWA, PT. Case d/w Dr. Casetllon Subjective: somnolent after Ativan this morning Objective: Vital Signs Temp Pulse Resp BP Pulse Ox 37.1 C 78 12 114/67 95 03/12/18 10:00 03/12/18 11:10 03/12/18 11:10 03/12/18 10:00 03/12/18 11:10 Microbiology 03/11/18 18:30 - Final Sputum, Induced/Suctioned Laboratory Results 03/12/18 13:53 03/12/18 06:20 03/11/18 03/12/18 03/13/18 05:59 05:59 05:59 Intake Total 4381 Output Total 2375 Balance 2005 PT 13.2 SEC (12.0-15.0) 03/11/18 15:46 INR 0.98 (0.83-1.16) 03/11/18 15:46 - Time Spent With Patient Time Spent with Patient: greater than 35 minutes Time Spent with Patient: Greater than 35 minutes spent on this patients care, greater than 50% of time spent counseling, educating, and coordinating care regarding the above mentioned plan. - Physical Exam Constitutional: obese, other (somnolent) Eyes: PERRL, other (NG in place) Ears, Nose, Mouth, Throat: other (dried blood at mouth) Cardiovascular: regular rate and rhythym Respiratory: no respiratory distress, no rales or rhonchi Gastrointestinal: normoactive bowel sounds Genitourinary: no bladder fullness Musculoskeletal: full muscle strength Neurologic: CN II-XII Intact Psychiatric: encephalopathic ICD10 Worksheet Patient Problems: Problems Problem Status Onset Aspiration pneumonia Acute Respiratory failure Acute Severe sepsis Acute
--- NOTE | 2018-03-12 15:28 | ASMTCMCOM ---
CM Note CM Note Notes: Sent an email to Sean at the [facility] to communicate patient is in the hospital. Donte is concerned he is going to lose his bed there if he is not there for 2 nights. We requested they hold his bed until he discharges from the hospital.CM will follow. Date Signed: 03/12/2018 03:28 PM Electronically Signed By:Radhika Winchester LCSW
[2018-03-12] MEDS: CALCIUM CARBONATE 500 MG TAB PO SCH (17:11)
[2018-03-12] MEDS: METOPROLOL TARTRATE 25 MG TAB PO SCH (22:46)
[2018-03-13] MEDS: POTASSIUM Cl (KCl) 100 ML IV SCH ×3 (00:13→00:28)
[2018-03-13] MEDS: LORazepam 2 MG/ML INJ IVP PRN ×6 (03:39→20:45)
[2018-03-13 04:57] LABS: INR 1.08 (0.83-1.16); PROTIME(PATIENT) 14.2 SEC (12.0-15.0)
[2018-03-13] MEDS: IPRATROPIUM/ALBUTEROL 3 ML DEYVIAL IH SCH ×4 (06:01→20:59)
[2018-03-13] MEDS: CHLORHEXIDINE GLUCONATE 15 ML UDL PO SCH ×2 (07:33→21:04)
[2018-03-13] MEDS: FAMOTIDINE 20 MG/NACL 50 ML IV SCH (08:42)
[2018-03-13] MEDS: NICOTINE 21 MG/24 HR PATCH TD SCH (08:42)
[2018-03-13] MEDS: methylPREDNISolone SOD SUCC 125 MG/2 ML VIAL IVP SCH (08:42)
[2018-03-13] MEDS: CALCIUM CARBONATE 500 MG TAB PO SCH ×2 (08:47→17:23)
[2018-03-13] MEDS ORDERED: CALCIUM GLUCONATE 50 ML IV ONE (08:56)
[2018-03-13] MEDS: METOPROLOL TARTRATE 25 MG TAB PO SCH ×2 (09:40→20:44)
[2018-03-13] MEDS: THIAMINE HCL 500 MG in NS 100 ML IV SCH (09:40)
--- NOTE | 2018-03-13 09:42 | HOSPPROG ---
Hospitalist Progress Note Assessment/Plan: #Acute hypoxic resp failure: intubated for airway protection with Etoh intoxication. Extubated this morning #Aspiration PNA: change to Unasyn with Strep A #ABLA: oral hemorrhage. H/H stable #Hypopharynx edema: unclear if trauma from intubation vs. angioedema from SENIA- I. Bronch showed mild edema. #Etoh dependence with withdrawal: significant BZ needs. Tower Operator when mentation improves #Toxic encephalopathy: from Etoh w/d #Hypomagnesium/hypocalcemia: repleting #Lactic acidosis: suspect from Etoh ketoacidosis rather than infection. Afebrile. #HTN: add Norvasc when taking PO. ACEI/ARB added to allergy for possible angioedema #Alcoholic hepatitis: improving #Oral hemorrhage: suspect from intubation. H/H stable, no melena/hematemesis #Diet: speech eval #Disp: inpatient admission for CIWA, PT. Case d/w Dr. Castellon Subjective: "feel confused" Objective: Vital Signs Temp Pulse Resp BP Pulse Ox 37.1 C 96 17 151/76 H 91 L 03/13/18 00:00 03/13/18 09:40 03/13/18 08:00 03/13/18 09:40 03/13/18 08:00 Microbiology 03/11/18 18:30 - Final Sputum, Induced/Suctioned Laboratory Results 03/13/18 05:08 03/13/18 05:08 03/12/18 03/13/18 03/14/18 05:59 05:59 05:59 Intake Total 4381 5050 Output Total 2375 1175 350 Balance 2005 3875 -350 PT 14.2 SEC (12.0-15.0) 03/13/18 04:30 INR 1.08 (0.83-1.16) 03/13/18 04:30 - Time Spent With Patient Time Spent with Patient: greater than 35 minutes Time Spent with Patient: Greater than 35 minutes spent on this patients care, greater than 50% of time spent counseling, educating, and coordinating care regarding the above mentioned plan. - Physical Exam Constitutional: unkempt Eyes: PERRL Ears, Nose, Mouth, Throat: dry mucous membranes Cardiovascular: regular rate and rhythym Gastrointestinal: normoactive bowel sounds Genitourinary: No galicia in urethra Neurologic: CN II-XII Intact, other (moderated hand tremors and tongue fasiculations) Psychiatric: encephalopathic ICD10 Worksheet Patient Problems: Problems Problem Status Onset Aspiration pneumonia Acute Respiratory failure Acute Severe sepsis Acute
--- NOTE | 2018-03-13 11:09 | PDINTPN ---
Long Wall Mining Machine Tender Progress Note Assessment/Plan: Assessment: 67-year-old chronic alcoholic status post respiratory arrest 03/11 with blood in airways and airway edema. BAL 400 on admission. Respiratory arrest. Etiology for this remains unclear. Had blood in upper airways when found but has not continued to bleed from an upper airway source. Upper GI source remains possible, but no significant blood in his NG tube when this was in place, no melena. Airway swelling found when intubated in the emergency department. Possible angioedema versus edema from traumatic intubation trials pre hospitalization? Not much edema seen when extubated over the bronchoscope a day later. Acute respiratory failure. Improved. Extubated yesterday. No blood or bloody clots or significant mucus plugging seen on bronchoscopy. Only a mild amount of edema related to laryngeal structures on above. Remains on oxygen at 4 L. Aspiration/aspiration pneumonia-bronchitis. Documented aspiration. Bibasilar infiltrates are small. Strep group A from bronchoscopy. On ceftriaxone and metronidazole. Will change to Unasyn alone. Possible sepsis? I think this is less likely. Elevated lactate likely secondary to arrest. Cultures remain negative except for group a strep in sputum. On broad-spectrum antibiotics for aspiration pneumonia. COPD/emphysema. Present on admission. Severity unknown. On bronchodilator therapy. Acute intoxication/chronic alcohol abuse. BAL 400 on admission. On CIWA since extubation. Received Precedex overnight, off this morning Alcoholic hepatitis. LFTs decreasing Anemia. Hematocrit 33 down from 50 on admission. Acute blood-loss coupled with fluid resuscitation likely causes, likely more the latter. An upper GI bleed seems unlikely at this point. No evidence of active GI bleeding. Metabolic: Hypocalcemic, hypophosphatemia. On replacement protocols. Prophylaxis: On famotidine, SCDs. Plan: Continue care in the intensive care unit. Continue CIWA protocol. Change antibiotics to Unasyn. Continue bronchopulmonary therapies. Increase mobilization as tolerated. Follow laboratory, H&H. Continue electrolyte replacement protocols. Decrease IV fluids. 20 mg of Lasix IV today. 40 min of critical care time spent directly with the patient managing issues as outlined above. Discussed with hospitalist, nursing, respiratory, and the ICU multi disciplinary team. Subjective: Somnolent, arouses. Denies shortness of breath Objective: Vital Signs Temp Pulse Resp BP Pulse Ox 37.1 C 101 H 21 H 135/72 H 91 L 03/13/18 00:00 03/13/18 10:00 03/13/18 10:00 03/13/18 10:00 03/13/18 10:00 Microbiology 03/11/18 18:30 - Final Sputum, Induced/Suctioned Laboratory Results 03/13/18 05:08 03/13/18 05:08 03/12/18 03/13/18 03/14/18 05:59 05:59 05:59 Intake Total 4381 5050 Output Total 2375 1175 350 Balance 2005 3875 -350 PT 14.2 SEC (12.0-15.0) 03/13/18 04:30 INR 1.08 (0.83-1.16) 03/13/18 04:30 Laboratory Tests 03/13/18 03/13/18 03/13/18 04:30 04:30 05:08 PT 14.2 INR 1.08 APTT 20.7 L Calcium 7.1 L Ionized Calcium 0.91 L Phosphorus 2.2 L Magnesium 2.1 AST 160 H ALT 330 H Albumin 3.5 Vitamin B12 930 Folate 9.14 CXR: Small infiltrates medially at the right left base. Increased markings. Hiatal hernia Microbiology 03/11/18 18:30 Sputum, Induced/Suctioned - Final 03/11/18 18:30 Sputum, Induced/Suctioned Sputum Culture - Preliminary Streptococcus Pyogenes Grp A Physical Exam - Physical Exam General Appearance: other (Somnolent, arouses), No WD/WN, No alert EENT: PERRL/EOMI, other (Nasal cannula in place at 4-5 L. ) Neck: normal inspection (No JVD) Respiratory: decreased breath sounds, rales (Few rales at bases), rhonchi ( Central), wheezing, prolonged expiration, No lungs clear, No normal breath sounds, No accessory muscle use Cardiac/Chest: regular rate, rhythm, No gallop Abdomen: non-tender, soft, No normal bowel sounds (Decreased, present) Male Genitalia: other (Goodman catheter in place: Making urine but input greater than output since admission) Skin: normal color, warm/dry Extremities: pedal edema (Trace +) Neuro/Psych: no motor/sensory deficits (Moves all extremities equally), No cognition abnormalities (Lethargic/somnolent) ICD10 Worksheet Patient Problems: Problems Problem Status Onset Respiratory failure Acute Severe sepsis Acute Aspiration pneumonia Acute
[2018-03-13] MEDS ORDERED: FUROSEMIDE 20 MG/2 ML VIAL IVP ONE (11:19)
[2018-03-13] MEDS: AMPICILLIN/SULBACTAM 1.5 GM in NS 50 ML IV SCH ×3 (12:02→23:56)
[2018-03-13] MEDS ORDERED: LIDOCAINE 2% VISCOUS 15 ML UDCUP PO PRN (15:35)
[2018-03-13] MEDS ORDERED: MAG HYDROX/AL HYDROX/SIMETH 30 ML UDCUP PO PRN (15:35)
[2018-03-13] MEDS ORDERED: HYOSCYAMINE SULFATE 0.125 MG TAB PO PRN (15:35)
[2018-03-13] MEDS ORDERED: CALCIUM CARBONATE 500 MG CHEWABLE TAB PO PRN (15:35)
[2018-03-13] MEDS: predniSONE 20 MG TAB PO SCH (17:23)
[2018-03-13] MEDS: FAMOTIDINE 20 MG TAB PO SCH (20:45)
[2018-03-14] MEDS: AMPICILLIN/SULBACTAM 1.5 GM in NS 50 ML IV SCH (05:15)
[2018-03-14] MEDS: LORazepam 2 MG/ML INJ IVP PRN ×6 (05:41→20:12)
[2018-03-14] MEDS: IPRATROPIUM/ALBUTEROL 3 ML DEYVIAL IH SCH ×4 (05:50→21:39)
[2018-03-14] MEDS ORDERED: POTASSIUM CL 10 MEQ TAB PO ONE ×2 (07:07→19:19)
[2018-03-14] MEDS ORDERED: CALCIUM GLUCONATE 50 ML IV ONE (07:08)
[2018-03-14] MEDS: CHLORHEXIDINE GLUCONATE 15 ML UDL PO SCH ×2 (08:00→20:11)
[2018-03-14] MEDS: ENOXAPARIN 40 MG/0.4 ML SYR SC SCH (08:04)
[2018-03-14] MEDS: predniSONE 20 MG TAB PO SCH (08:04)
[2018-03-14] MEDS: CALCIUM CARBONATE 500 MG TAB PO SCH ×2 (08:04→16:28)
[2018-03-14] MEDS: FAMOTIDINE 20 MG TAB PO SCH ×2 (08:04→20:11)
[2018-03-14] MEDS: NICOTINE 21 MG/24 HR PATCH TD SCH (08:04)
[2018-03-14] MEDS: METOPROLOL TARTRATE 25 MG TAB PO SCH ×2 (08:05→20:11)
[2018-03-14] MEDS: THIAMINE HCL 500 MG in NS 100 ML IV SCH (09:06)
[2018-03-14] MEDS: AMOXICILLIN/CLAVULANATE POT 875/125 MG TAB PO SCH ×2 (11:29→20:11)
[2018-03-14] MEDS: NYSTATIN SUSP 500000 UNIT/5 ML UD LIQ PO SCH ×3 (11:29→20:12)
--- NOTE | 2018-03-14 13:09 | HOSPPROG ---
Hospitalist Progress Note Assessment/Plan: #Acute hypoxic resp failure: intubated for airway protection with Etoh intoxication. Extubated this morning #Aspiration PNA: Strep A on culture. Unasyn, Day 2 #Oral thrush: Nystatin #ABLA: oral hemorrhage from intubation. No melena or hematemesis #Hypopharynx edema: unclear if trauma from intubation vs. angioedema from SENIA- I. Bronch showed mild edema. #Etoh dependence with withdrawal: less benzos overnight. 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 From Etoh w/d #Hypomagnesium/hypocalcemia: repleting #Lactic acidosis: suspect from Etoh ketoacidosis rather than infection. Afebrile. #HTN: add Norvasc when taking PO. ACEI/ARB added to allergy for possible angioedema #Alcoholic hepatitis: improving #Diet: regular #DVT ppx: Lovenox #Disp: inpatient admission for CIWA, PT. Case d/w Dr. Castellon Subjective: less anxious today Objective: Vital Signs Temp Pulse Resp BP Pulse Ox 37.2 C 83 28 H 153/95 H 96 03/14/18 08:00 03/14/18 11:42 03/14/18 11:42 03/14/18 08:00 03/14/18 11:42 Microbiology 03/11/18 18:30 - Final Sputum, Induced/Suctioned Sputum Culture - Final Streptococcus Pyogenes Grp A Laboratory Results 03/14/18 05:20 03/14/18 05:20 03/13/18 03/14/18 03/15/18 05:59 05:59 05:59 Intake Total 5050 2084 Output Total 1175 2325 125 Balance 3875 -241 -125 PT 14.2 SEC (12.0-15.0) 03/13/18 04:30 INR 1.08 (0.83-1.16) 03/13/18 04:30 - Time Spent With Patient Time Spent with Patient: greater than 35 minutes Time Spent with Patient: Greater than 35 minutes spent on this patients care, greater than 50% of time spent counseling, educating, and coordinating care regarding the above mentioned plan. - Physical Exam Constitutional: no apparent distress Eyes: PERRL Ears, Nose, Mouth, Throat: oral thrush Cardiovascular: regular rate and rhythym Respiratory: rhonchi Gastrointestinal: normoactive bowel sounds Genitourinary: no bladder fullness Neurologic: AAOx3 (alert to self, hospital), CN II-XII Intact, other (+tongue fasciulation) Psychiatric: flat affect ICD10 Worksheet Patient Problems: Problems Problem Status Onset Aspiration pneumonia Acute Respiratory failure Acute Severe sepsis Acute
--- NOTE | 2018-03-14 13:41 | ASMTCMCOM ---
CM Note CM Note Notes: PT/OT have d/c the patient. Discharge needs will be IV ABX for 8wks. [facility] and [facility] have been notofied. Date Signed: 03/14/2018 01:40 PM Electronically Signed By:Susana Hawthorne LCSW
--- NOTE | 2018-03-14 13:44 | ASMTCMCOM ---
CM Note CM Note Notes: Please disregard the CM Note 03/14/18 13:40 writted on the wrong patient. Date Signed: 03/14/2018 01:43 PM Electronically Signed By:Susana Hawthorne LCSW
--- NOTE | 2018-03-14 14:16 | PDINTPN ---
Senior Officer Progress Note Assessment/Plan: Assessment: 67-year-old chronic alcoholic status post respiratory arrest 03/11 with blood in airways and airway edema. BAL 400 on admission. Respiratory arrest. Etiology for this remains unclear. Had blood in upper airways when found but has not continued to bleed from an upper airway source. Upper GI source remains possible. Airway swelling found when intubated in the emergency department. Possible angioedema versus edema from traumatic intubation trials pre hospitalization? Only mild swelling found the next day on bronchoscopy. Extubated without problems/stridor. Acute respiratory failure. Resolved. Has been stable since extubation. Chest x-ray without significant infiltrates despite witnessed aspiration. Aspiration/aspiration bronchopneumonia. Documented aspiration. Group a strep from bronch. On Unasyn, switching to Augmentin.. Possible sepsis? I think this is less likely. Elevated lactate likely secondary to arrest? Blood cultures remain negative. COPD/emphysema. Present on admission. Severity unknown. On bronchodilator therapy. Ongoing tobacco abuse Acute intoxication, chronic alcohol abuse. Active alcohol withdrawal. BAL 400 on admission. On CIWA, not on Precedex last night: Will DC, continue Ativan. Alcoholic hepatitis. Anemia. Hematocrit 33.7 down from 50 on admission. Acute blood-loss coupled with fluid resuscitation likely causes. An upper GI bleed seems unlikely at this point. Metabolic: On replacement protocols. Prophylaxis: On famotidine, SCDs. Plan: Continue care. Can transfer to a medical-surgical bed today. Continue CIWA. Switch antibiotics to Augmentin. Continue bronchopulmonary therapies. Decreased prednisone to 40 mg Q a.m. from twice daily in wean over the next several days. Discussed with hospitalist, nursing, respiratory, and the ICU multi disciplinary team. Subjective: Confused, up in chair. Tremulous. Denies shortness of breath. Objective: Vital Signs Temp Pulse Resp BP Pulse Ox 36.6 C 95 18 158/92 H 92 03/14/18 13:54 03/14/18 13:54 03/14/18 13:54 03/14/18 13:54 03/14/18 13:54 Microbiology 03/11/18 18:30 - Final Sputum, Induced/Suctioned Sputum Culture - Final Streptococcus Pyogenes Grp A Laboratory Results 03/14/18 05:20 03/14/18 05:20 11/24/18 11/25/18 11/26/18 05:59 05:59 05:59 Intake Total 5050 2084 Output Total 1175 2325 125 Balance 3875 -241 -125 PT 14.2 SEC (12.0-15.0) 03/13/18 04:30 INR 1.08 (0.83-1.16) 03/13/18 04:30 Laboratory Tests 03/14/18 03/14/18 05:20 05:20 Calcium 8.2 L Ionized Calcium 1.09 L Phosphorus 2.6 Magnesium 2.4 H Physical Exam - Physical Exam General Appearance: alert, no apparent distress EENT: PERRL/EOMI, other (Nasal cannula at 3 L) Neck: normal inspection (No JVD) Respiratory: lungs clear (Anteriorly), decreased breath sounds, wheezing ( Minimal wheezing), prolonged expiration, No normal breath sounds (Coarse breath sounds bilaterally), No respiratory distress, No rhonchi (Central airway congestion with cough) Cardiac/Chest: regular rate, rhythm (Regular rate and rhythm alternating with sinus tachycardia at times) Abdomen: normal bowel sounds, non-tender, soft, No organomegaly Male Genitalia: other (Using urinal, good urine output) Skin: normal color, warm/dry Extremities: No pedal edema Neuro/Psych: no motor/sensory deficits (Moves all extremities equally. Positive tremor), cognition abnormalities (Confused, oriented to person.) ICD10 Worksheet Patient Problems: Problems Problem Status Onset Respiratory failure Acute Severe sepsis Acute Aspiration pneumonia Acute
[2018-03-14] MEDS: hydrALAZINE 20 MG/ML VIAL IVP PRN (22:29)
[2018-03-15] MEDS: LORazepam 2 MG/ML INJ IVP PRN ×3 (01:18→17:58)
[2018-03-15] MEDS: IPRATROPIUM/ALBUTEROL 3 ML DEYVIAL IH SCH ×4 (05:21→20:57)
[2018-03-15] MEDS: NS 1,000 ML IV SCH (05:31)
[2018-03-15] MEDS: NYSTATIN SUSP 500000 UNIT/5 ML UD LIQ PO SCH ×4 (05:31→20:34)
[2018-03-15] MEDS ORDERED: CALCIUM GLUCONATE 50 ML IV ONE (08:01)
[2018-03-15] MEDS ORDERED: POTASSIUM CL 10 MEQ TAB PO ONE (08:02)
[2018-03-15] MEDS: predniSONE 20 MG TAB PO SCH (08:27)
[2018-03-15] MEDS: AMOXICILLIN/CLAVULANATE POT 875/125 MG TAB PO SCH ×2 (08:27→20:34)
[2018-03-15] MEDS: METOPROLOL TARTRATE 25 MG TAB PO SCH ×2 (08:27→20:34)
[2018-03-15] MEDS: CALCIUM CARBONATE 500 MG TAB PO SCH ×2 (08:28→17:51)
[2018-03-15] MEDS: NICOTINE 21 MG/24 HR PATCH TD SCH (08:28)
[2018-03-15] MEDS: CHLORHEXIDINE GLUCONATE 15 ML UDL PO SCH ×2 (08:28→20:34)
[2018-03-15] MEDS: FAMOTIDINE 20 MG TAB PO SCH ×2 (08:28→20:34)
[2018-03-15] MEDS: ENOXAPARIN 40 MG/0.4 ML SYR SC SCH (08:29)
[2018-03-15] MEDS: THIAMINE HCL 100 MG TAB PO SCH (08:52)
[2018-03-15] MEDS ORDERED: FLUTICASONE NASAL 120 SPRAYS/16 GM MDI EACHNARE PRN (12:35)
--- NOTE | 2018-03-15 14:23 | HOSPPROG ---
Hospitalist Progress Note Assessment/Plan: 67y male with AMS, first encounter, chart reviewed. #Acute hypoxic resp failure: -intubated for airway protection with Etoh intoxication. Extubated yesterday #Aspiration PNA: S -Strep A on culture. Unasyn, Day 3 #Oral thrush: -Nystatin #ABLA: -oral hemorrhage from intubation. No melena or hematemesis #Hypopharynx edema: -unclear if trauma from intubation vs. angioedema from SENIA-I. Bronch showed mild edema. -do not restart pt home lisinopril #Etoh dependence with withdrawal: -less benzos overnight. Grit Removal Operator when mentation improves #Toxic encephalopathy: - improving. From Etoh w/d #Hypomagnesium/hypocalcemia: -repleting #Lactic acidosis: -suspect from Etoh ketoacidosis rather than infection. Afebrile. #HTN: add Norvasc when taking PO. ACEI/ARB added to allergy for possible angioedema #Alcoholic hepatitis: -improving #Diet: regular #DVT ppx: Lovenox #Disp: inpatient admission for CIWA, PT. Will need DC plan Cont current care Subjective: Up in chair. Lethargic. No pain. Objective: Vital Signs Temp Pulse Resp BP Pulse Ox 36.7 C 97 24 H 146/87 H 92 03/15/18 12:00 03/15/18 12:00 03/15/18 12:00 03/15/18 12:00 03/15/18 12:00 Microbiology 03/11/18 18:30 - Final Sputum, Induced/Suctioned Sputum Culture - Final Streptococcus Pyogenes Grp A Laboratory Results 03/15/18 04:30 03/15/18 04:30 03/14/18 03/15/18 03/16/18 05:59 05:59 05:59 Intake Total 2084 458 Output Total 2325 275 Balance -241 183 PT 14.2 SEC (12.0-15.0) 03/13/18 04:30 INR 1.08 (0.83-1.16) 03/13/18 04:30 - Physical Exam Constitutional: appears nourished, not in pain, chronically ill appearing Eyes: PERRL, anicteric sclera, EOMI Ears, Nose, Mouth, Throat: moist mucous membranes, ears appear normal, hard of hearing Cardiovascular: regular rate and rhythym, No JVD, No edema Respiratory: no respiratory distress, no rales or rhonchi, reduced air movement Gastrointestinal: normoactive bowel sounds, No tenderness, No ascites Skin: warm, normal color, No mottled Musculoskeletal: normal joint ROM, no joint effusions, generalized weakness Neurologic: No AAOx3 Psychiatric: not anxious, encephalopathic, poor insight, poor judgement, poor memory ICD10 Worksheet Patient Problems: Problems Problem Status Onset Respiratory failure Acute Severe sepsis Acute Aspiration pneumonia Acute
--- NOTE | 2018-03-15 16:10 | ASMTCMCOM ---
CM Note CM Note Notes: HORTENCIA spoke to JOCELYN Wells. Pt is still confused and slurring his words. CM updated Sean at the group home. Sean will hold the bed for pt. Sean would like updates in the next 2-3 days. Sean reports that he will need to bring dc paperwork when he leaves the hospital. HORTENCIA to follow. Date Signed: 03/15/2018 04:10 PM Electronically Signed By:GLORIA Rivera
[2018-03-16] MEDS: hydrALAZINE 20 MG/ML VIAL IVP PRN (03:36)
[2018-03-16] MEDS: NS 1,000 ML IV SCH (04:55)
[2018-03-16] MEDS: IPRATROPIUM/ALBUTEROL 3 ML DEYVIAL IH SCH ×4 (05:22→20:28)
[2018-03-16] MEDS: NYSTATIN SUSP 500000 UNIT/5 ML UD LIQ PO SCH ×4 (06:25→20:08)
[2018-03-16] MEDS ORDERED: POTASSIUM CL 10 MEQ TAB PO ONE (08:09)
[2018-03-16] MEDS: METOPROLOL TARTRATE 25 MG TAB PO SCH ×2 (08:46→20:08)
[2018-03-16] MEDS: CHLORHEXIDINE GLUCONATE 15 ML UDL PO SCH ×2 (08:46→20:08)
[2018-03-16] MEDS: PANTOPRAZOLE SODIUM 40 MG TAB PO SCH (08:47)
[2018-03-16] MEDS: FAMOTIDINE 20 MG TAB PO SCH ×2 (08:47→20:09)
[2018-03-16] MEDS: AMOXICILLIN/CLAVULANATE POT 875/125 MG TAB PO SCH ×2 (08:47→20:08)
[2018-03-16] MEDS: CALCIUM CARBONATE 500 MG TAB PO SCH ×2 (08:47→17:18)
[2018-03-16] MEDS: THIAMINE HCL 100 MG TAB PO SCH (08:47)
[2018-03-16] MEDS: predniSONE 20 MG TAB PO SCH (08:47)
[2018-03-16] MEDS: NICOTINE 21 MG/24 HR PATCH TD SCH (08:48)
[2018-03-16] MEDS: ENOXAPARIN 40 MG/0.4 ML SYR SC SCH (08:48)
[2018-03-16] MEDS ORDERED: LISINOPRIL 20 MG TAB PO SCH (09:00)
--- NOTE | 2018-03-16 12:26 | HOSPPROG ---
Hospitalist Progress Note Assessment/Plan: 67y male with AMS. #Acute hypoxic resp failure: -intubated for airway protection with Etoh intoxication. Extubated yesterday #Aspiration PNA: -Strep A on culture. Unasyn, Day 3 #Oral thrush: -Nystatin #ABLA: -oral hemorrhage from intubation. No melena or hematemesis #Hypopharynx edema: -unclear if trauma from intubation vs. angioedema from SENIA-I. Bronch showed mild edema. -do not restart pt home lisinopril #Etoh dependence with withdrawal: -less benzos overnight. 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 From Etoh w/d #Hypomagnesium/hypocalcemia: -repleting #Lactic acidosis: -suspect from Etoh ketoacidosis rather than infection. Afebrile. #HTN: add Norvasc when taking PO. ACEI/ARB added to allergy for possible angioedema #Alcoholic hepatitis: -improving #Diet: regular #DVT ppx: Lovenox #Disp: inpatient admission for CIWA, PT. Will need DC plan Cont current care Subjective: Up walking. Confused. Objective: Vital Signs Temp Pulse Resp BP Pulse Ox 36.6 C 88 16 127/88 H 91 L 03/16/18 11:59 03/16/18 11:59 03/16/18 11:59 03/16/18 11:59 03/16/18 11:59 Laboratory Results 03/15/18 04:30 03/16/18 03:33 03/15/18 03/16/18 03/17/18 05:59 05:59 05:59 Intake Total 458 1272 Output Total 275 Balance 183 1272 PT 14.2 SEC (12.0-15.0) 03/13/18 04:30 INR 1.08 (0.83-1.16) 03/13/18 04:30 - Physical Exam Constitutional: chronically ill appearing, unkempt, cachectic Eyes: PERRL, anicteric sclera, EOMI Ears, Nose, Mouth, Throat: moist mucous membranes, hearing normal, ears appear normal Cardiovascular: No JVD, No tachycardia, No edema Respiratory: no respiratory distress, no rales or rhonchi, reduced air movement Gastrointestinal: normoactive bowel sounds, No tenderness, No ascites Skin: warm, normal color, No mottled Musculoskeletal: no joint effusions, pain with ROM, generalized weakness Neurologic: No AAOx3 Psychiatric: poor insight, poor judgement, poor memory ICD10 Worksheet Patient Problems: Problems Problem Status Onset Aspiration pneumonia Acute Respiratory failure Acute Severe sepsis Acute
--- NOTE | 2018-03-16 13:00 | HOSPPROG ---
Hospitalist Progress Note Assessment/Plan: 67y male with AMS. #Acute hypoxic resp failure: -intubated for airway protection with Etoh intoxication. -stable #Aspiration PNA: -Strep A on culture. Unasyn, Day 4 #Oral thrush: -Nystatin #ABLA: -oral hemorrhage from intubation. No melena or hematemesis #Hypopharynx edema: -unclear if trauma from intubation vs. angioedema from SENIA-I. Bronch showed mild edema. -do not restart pt home lisinopril #Etoh dependence with withdrawal: -less benzos overnight. 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 From Etoh w/d #Hypomagnesium/hypocalcemia: -repleting #Lactic acidosis: -suspect from Etoh ketoacidosis rather than infection. Afebrile. #HTN: add Norvasc when taking PO. ACEI/ARB added to allergy for possible angioedema #Alcoholic hepatitis: -improving #Diet: regular #DVT ppx: Lovenox #Disp: inpatient admission for CIWA, PT. Will need DC plan Cont current care Subjective: Up walking. Confused. No issues. Objective: Vital Signs Temp Pulse Resp BP Pulse Ox 36.6 C 88 16 127/88 H 91 L 03/16/18 11:59 03/16/18 11:59 03/16/18 11:59 03/16/18 11:59 03/16/18 11:59 Laboratory Results 03/15/18 04:30 03/16/18 03:33 03/15/18 03/16/18 03/17/18 05:59 05:59 05:59 Intake Total 458 1272 Output Total 275 Balance 183 1272 PT 14.2 SEC (12.0-15.0) 03/13/18 04:30 INR 1.08 (0.83-1.16) 03/13/18 04:30 - Physical Exam Constitutional: chronically ill appearing, unkempt Eyes: PERRL, anicteric sclera Ears, Nose, Mouth, Throat: moist mucous membranes, hearing normal Cardiovascular: No JVD, No edema Respiratory: no respiratory distress, reduced air movement Gastrointestinal: No tenderness, No ascites Skin: warm, normal color Musculoskeletal: no joint effusions, muscular tenderness, generalized weakness Neurologic: No AAOx3 Psychiatric: not anxious, poor insight, poor judgement, poor memory, No thought process linear ICD10 Worksheet Patient Problems: Problems Problem Status Onset Respiratory failure Acute Severe sepsis Acute Aspiration pneumonia Acute
--- NOTE | 2018-03-16 16:09 | ASMTCMCOM ---
CM Note CM Note Notes: Davon is the patient's child support case officer at the [facility]term. ([phone])Updated Davon on patient's condition and gave him an estimate of possible d/c for . Davon states they can take patient back if he comes straight from the hospital to their facility at 5:00 which is check in time. Patient will need to bring his d/c packet from the hospital to the longterm to show admission and discharge dates, etc. Davon will appreciate updates if patient needs to remain in the hospital for a longer period of time. They are holding his bed for him. CM will follow. Date Signed: 03/16/2018 04:08 PM Electronically Signed By:Radhika Winchester LCSW
[2018-03-16] MEDS: ACETAMINOPHEN 325 MG TAB PO PRN (23:54)
[2018-03-17] MEDS: IPRATROPIUM/ALBUTEROL 3 ML DEYVIAL IH SCH ×4 (05:34→19:49)
[2018-03-17] MEDS: NYSTATIN SUSP 500000 UNIT/5 ML UD LIQ PO SCH ×4 (06:23→20:23)
[2018-03-17] MEDS ORDERED: POTASSIUM CL 10 MEQ TAB PO ONE (08:44)
[2018-03-17] MEDS: ENOXAPARIN 40 MG/0.4 ML SYR SC SCH (08:54)
[2018-03-17] MEDS: AMOXICILLIN/CLAVULANATE POT 875/125 MG TAB PO SCH ×2 (08:54→20:22)
[2018-03-17] MEDS: CALCIUM CARBONATE 500 MG TAB PO SCH ×2 (08:54→18:33)
[2018-03-17] MEDS: FAMOTIDINE 20 MG TAB PO SCH ×2 (08:54→20:23)
[2018-03-17] MEDS: CHLORHEXIDINE GLUCONATE 15 ML UDL PO SCH ×2 (08:54→20:23)
[2018-03-17] MEDS: THIAMINE HCL 100 MG TAB PO SCH (08:55)
[2018-03-17] MEDS: METOPROLOL TARTRATE 25 MG TAB PO SCH ×2 (08:55→20:22)
[2018-03-17] MEDS: PANTOPRAZOLE SODIUM 40 MG TAB PO SCH (08:55)
[2018-03-17] MEDS: predniSONE 20 MG TAB PO SCH (08:55)
[2018-03-17] MEDS: NICOTINE 21 MG/24 HR PATCH TD SCH (08:55)
[2018-03-17] MEDS: ACETAMINOPHEN 325 MG TAB PO PRN (09:13)
--- NOTE | 2018-03-17 09:40 | HOSPPROG ---
Hospitalist Progress Note Assessment/Plan: 67y male with AMS. #Acute hypoxic resp failure: -intubated for airway protection with Etoh intoxication -improving #Aspiration PNA: -Strep A on culture. -augmentin #Oral thrush: -Nystatin #ABLA: -oral hemorrhage from intubation. No melena or hematemesis -stable #Hypopharynx edema: -unclear if trauma from intubation vs. angioedema from SENIA-I. Bronch showed mild edema. -do not restart pt home lisinopril #Etoh dependence with withdrawal: -less benzos -Counseled #Toxic encephalopathy: - improving. From Etoh w/d #Hypomagnesium/hypocalcemia: -repleting #Lactic acidosis: -suspect from Etoh ketoacidosis rather than infection. Afebrile. #HTN: -Norvasc when taking PO. -ACEI/ARB added to allergy for possible angioedema #Alcoholic hepatitis: -improving #Diet: regular #DVT ppx: Lovenox #Disp: inpatient admission for CIWA, PT. Will need DC plan Cont current care Subjective: Up in the chair. Feeling ok. Some pain when coughing. Objective: Vital Signs Temp Pulse Resp BP Pulse Ox 36.9 C 86 18 110/71 92 03/17/18 08:05 03/17/18 08:05 03/17/18 08:05 03/17/18 08:05 03/17/18 08:05 Microbiology 03/11/18 17:08 Blood Culture - Final Blood 03/11/18 16:42 Blood Culture - Final Blood Laboratory Results 03/15/18 04:30 03/17/18 04:31 03/16/18 03/17/18 03/18/18 05:59 05:59 05:59 Intake Total 1272 Output Total 150 Balance 1272 -150 PT 14.2 SEC (12.0-15.0) 03/13/18 04:30 INR 1.08 (0.83-1.16) 03/13/18 04:30 - Physical Exam Constitutional: appears nourished, chronically ill appearing Eyes: PERRL, anicteric sclera Ears, Nose, Mouth, Throat: moist mucous membranes, hearing normal Cardiovascular: No JVD, No edema Respiratory: no respiratory distress, reduced air movement Gastrointestinal: No tenderness, No ascites Skin: warm, normal color Musculoskeletal: no joint effusions, generalized weakness Neurologic: AAOx3 Psychiatric: not anxious, not encephalopathic, poor judgement ICD10 Worksheet Patient Problems: Problems Problem Status Onset Respiratory failure Acute Severe sepsis Acute Aspiration pneumonia Acute
--- NOTE | 2018-03-17 14:58 | CPEKG ---
Test Reason : OPEN Blood Pressure : / mmHG Vent. Rate : 133 BPM Atrial Rate : 133 BPM P-R Int : 148 ms QRS Dur : 099 ms QT Int : 307 ms P-R-T Axes : 070 073 -18 degrees QTc Int : 457 ms Sinus tachycardia Borderline repol abnormality, diffuse leads Confirmed by Mary Hassan ([id number]) on 03/17/2018 2:58:08 PM Referred By: Confirmed By:Mary Hassan
[2018-03-18] MEDS: IPRATROPIUM/ALBUTEROL 3 ML DEYVIAL IH SCH ×3 (05:54→16:02)
[2018-03-18] MEDS: NYSTATIN SUSP 500000 UNIT/5 ML UD LIQ PO SCH ×2 (06:25→11:31)
[2018-03-18] MEDS: METOPROLOL TARTRATE 25 MG TAB PO SCH (08:24)
[2018-03-18] MEDS: PANTOPRAZOLE SODIUM 40 MG TAB PO SCH (08:25)
[2018-03-18] MEDS: AMOXICILLIN/CLAVULANATE POT 875/125 MG TAB PO SCH (08:25)
[2018-03-18] MEDS: ENOXAPARIN 40 MG/0.4 ML SYR SC SCH (08:25)
[2018-03-18] MEDS: FAMOTIDINE 20 MG TAB PO SCH (08:25)
[2018-03-18] MEDS: predniSONE 20 MG TAB PO SCH (08:25)
[2018-03-18] MEDS: CALCIUM CARBONATE 500 MG TAB PO SCH (08:25)
[2018-03-18] MEDS: CHLORHEXIDINE GLUCONATE 15 ML UDL PO SCH (08:26)
[2018-03-18] MEDS: NICOTINE 21 MG/24 HR PATCH TD SCH (08:27)
[2018-03-18] MEDS: THIAMINE HCL 100 MG TAB PO SCH (08:27)
[2018-03-18 11:55] VITALS: BP 124/79
--- NOTE | 2018-03-18 13:59 | ASMTLACE ---
LACE Length of stay for Answers: 7-13 days current admission Acuity / Level of Answers: Yes Care: Did the patient have an inpatient admission? Comorbidities - select Answers: Other Notes: Sepsis, aspiration all that apply pneumonia # of Emergency department Answers: 1-2 visits in the last 6 months Social determinants Answers: History of substance abuse (ETOH, street drugs, prescription drugs, etc.) Score: 13 Date Signed: 03/18/2018 01:58 PM Electronically Signed By:GLORIA Snyder
--- NOTE | 2018-03-18 14:09 | ASMTDCNOTE ---
Case Management Discharge Discharge Order Complete? Answers: Yes Patient to Obtain Answers: Independently Medications Transportation Arranged Answers: Taxi - Voucher Transport will Pick (Date 03/18/2018 04:30 PM & Time) Discharge Comments Notes: Pt discussed with . CM met with pt and discussed D/C plan to [facility]. CM provided pt clothing and pt agreeable with plan. CM spoke with Sean from [facility] to confirm bed and is aware of discharge plan. No other CM needs identified. Plan: [facility] Date Signed: 03/18/2018 02:08 PM Electronically Signed By:GLORIA Snyder
--- NOTE | 2018-03-18 14:12 | ASDISCHSUM ---
Discharge Information Plan Status:Homeless/Residential Medically Cleared to Leave:03/17/2018 Discharge Date:03/17/2018 CM D/C Disposition:[facility]re[facility] (Homeless) ADT D/C Disposition:Home, Routine, Self-Care Projected Discharge Date:03/17/2018 Transportation at D/C: Discharge Delay Reason: Follow-Up Date:03/17/2018 Discharge Slot:2 - 12:01 pm - 18:00 pm Final Diagnosis:Respiratory failure, airway edema, hemoptysis Placement Information Patient Contact Information Contact Name:CARLOS Relationship: Address: Home Phone: Work Phone: City: Alternate Phone: State/Zip Code: Email: Financial Information Financial Class:Medicare Primary Plan Desc:MEDICARE INPATIENT Primary Plan Number:[id number] Secondary Plan Desc:MED[place] Secondary Plan Number:[id number] Assessment Information LACE LACE Length of stay for Answers: 7-13 days current admission Acuity / Level of Answers: Yes Care: Did the patient have an inpatient admission? Comorbidities - select Answers: Other Notes: Sepsis, aspiration all that apply pneumonia # of Emergency department Answers: 1-2 visits in the last 6 months Social determinants Answers: History of substance abuse (ETOH, street drugs, prescription drugs, etc.) Score: 13 Date Signed: 03/18/2018 01:58 PM Electronically Signed By:GLORIA Snyder [facility] Initial CM Assessment Living Arrangements What is your living Answers: Alone arrangement? Who do you live with? Type Of Residence What kind of residence do Answers: House you live in? Discharge Plan Comments Coordination Status Comments Notes: Patient is a 67yo single male who was found on a park bench in respiratory distress. Paramedics were unable to place an airway and so patient was intubated upon arrival in the ED. Patient has been admitted for acute respiratory failure, aspiration pneumonia, angioedema, lactic acidosis, hepatitis, suspected oral hemorrhage. SPL has been ordered. D/C plan TBD. CM will follow. Date Signed: 03/12/2018 09:41 AM Electronically Signed By:Radhika Winchester LCSW [facility] CM Progress Note CM Note CM Note Notes: Sent an email to Sean at the [facility] to communicate patient is in the hospital. Donte is concerned he is going to lose his bed there if he is not there for 2 nights. We requested they hold his bed until he discharges from the hospital.CM will follow. Date Signed: 03/12/2018 03:28 PM Electronically Signed By:Radhika Winchester LCSW [facility] CM Progress Note CM Note CM Note Notes: PT/OT have d/c the patient. Discharge needs will be IV ABX for 8wks. [facility] and [facility] have been notofied. Date Signed: 03/14/2018 01:40 PM Electronically Signed By:Susana Hawthorne LCSW [facility] CM Progress Note CM Note CM Note Notes: Please disregard the CM Note 03/14/18 13:40 writted on the wrong patient. Date Signed: 03/14/2018 01:43 PM Electronically Signed By:Susana Hawthorne LCSW [facility] CM Progress Note CM Note CM Note Notes: HORTENCIA spoke to JOCELYN Wells. Pt is still confused and slurring his words. CM updated Sean at the [facility]. Sean will hold the bed for pt. Sean would like updates in the next 2-3 days. Sean reports that he will need to bring dc paperwork when he leaves the hospital. CM to follow. Date Signed: 03/15/2018 04:10 PM Electronically Signed By:GLORIA Rivera [facility] CM Progress Note CM Note CM Note Notes: Davon is the patient's major case detective at the [facility]. ([phone])Updated Davon on patient's condition and gave him an estimate of possible d/c for . Davon states they can take patient back if he comes straight from the hospital to their facility at 5:00 which is check in time. Patient will need to bring his d/c packet from the hospital to the [facility] to show admission and discharge dates, etc. Davon will appreciate updates if patient needs to remain in the hospital for a longer period of time. They are holding his bed for him. HORTENCIA will follow. Date Signed: 03/16/2018 04:08 PM Electronically Signed By:Radhika Winchester LCSW [facility] Progress Note CM Note CM Note Notes: Pt discussed with . Pt is being discharged to [facility]. CM spoke with Sean from [facility]. They are saving bed for him and are aware of discharge plans. CM provided clothing for pt and discussed discharge plan and pt is agreeable. No other CM needs identified. Plan: [facility] Date Signed: 03/18/2018 02:11 PM Electronically Signed By:GLORIA Snyder Case Management Discharge Plan Note Case Management Discharge Discharge Order Complete? Answers: Yes Patient to Obtain Answers: Independently Medications Transportation Arranged Answers: Taxi - Voucher Transport will Pick (Date 03/18/2018 04:30 PM & Time) Discharge Comments Notes: Pt discussed with . CM met with pt and discussed D/C plan to [facility]. CM provided pt clothing and pt agreeable with plan. CM spoke with Sean from [facility] to confirm bed and is aware of discharge plan. No other CM needs identified. Plan: [facility] Date Signed: 03/18/2018 02:08 PM Electronically Signed By:GLORIA Snyder Intervention Information
--- NOTE | 2018-03-18 14:12 | ASMTCMCOM ---
CM Note CM Note Notes: Pt discussed with . Pt is being discharged to residential. CM spoke with Sean from residential. They are saving bed for him and are aware of discharge plans. CM provided clothing for pt and discussed discharge plan and pt is agreeable. No other CM needs identified. Plan: [facility] Date Signed: 03/18/2018 02:11 PM Electronically Signed By:GLORIA Snyder
--- NOTE | 2018-03-18 15:35 | GDS ---
DISCHARGE DIAGNOSES: 1. Acute hypoxemic respiratory failure. 2. Aspiration pneumonia. 3. Thrush. 4. Acute blood loss anemia. 5. Hypopharynx edema. 6. Alcohol dependency with withdrawal. 7. Toxic encephalopathy. 8. Hypomagnesemia. 9. Hypocalcemia. 10. Lactic acidosis. 11. Hypertension. 12. Alcoholic hepatitis. PHYSICAL EXAM: GENERAL: The patient is alert. VITAL SIGNS: Afebrile at 36.8, pulse is 100, respira tory rate 16, blood pressure is 124/79. He is saturating 90% on room air. I have seen and evaluated the patient on the day of discharge. HOSPITAL COURSE: The patient is a 67-year-old male found down, brought to the emergency room, lisa muro and diagnosed with. 1. Acute hypoxemic respiratory failure. In this setting the patient was intubated for airway protec tion. His condition improved and he is tolerating being extubated at this time without complications . 2. Aspiration pneumonia. Strep A was grown on culture. Augmentin was given during this hospitaliza tion as well as IV antibiotic therapy. He has received a full dose of treatment secondary to this as piration pneumonia. 3. Oral thrush. This is resolved. 4. Acute blood loss anemia. This is in setting of oral hemorrhage from intubation. He has had no f urther signs of bleeding. His hemoglobin and hematocrit have remained stable. 5. Hypopharynx edema. This is unclear if it is from trauma from intubation or versus angioedema fro m his SENIA inhibitor. His lisinopril has not been continued at this time and this has been placed as an allergy during this hospitalization. I have recommended he refrain from using SENIA inhibitors in t he future. 6. Alcohol dependency with withdrawal. His CIWA has been discontinued. He is not requiring any fur ther benzodiazepine support. I have counseled him in regard to alcohol cessation. He understands th is and is in agreement with this plan. 7. Toxic encephalopathy. This has resolved in the setting of acute illness as well as alcohol withd chitra. 8. Hypomagnesium and hypocalcemia. These have been repleted and are stable. 9. Lactic acidosis in the setting of alcoholic ketoacidosis and has completely resolved. 10. Hypertension. The patient will continue on Lopressor in the outpatient setting. DISPOSITION: [facility] The patient has been offered longterm fac ili or other disposition plans at this time and is refusing them. He wishes to return to the [facility] where he has a program and he has a dependency case manager wherein he normally resides. There are no pendin g studies. DISCHARGE MEDICATIONS: Please refer to EMR form. I have provided the patient with a prescription fo r Lopressor at the time of disposition. Followup will be with [facility]. I have discussed the patient's disposition with Case Management, who is in agreement with this plan and has arranged furt her details for him. TIME SPENT WITH PATIENT: I spent greater than 35 minutes in the care, coordination, and management o f this patient's disposition. /[id number]/MODL
== END 2018-03-18 16:40 | disposition home or self-care (01) | DRG 208 ==
LOC: EDBD 15:28 → F2N 17:54 → F3E 03-14 13:45
PROVIDERS: ADMIT Student in an Organized Health Care Education/Training Program; ATTEND Student in an Organized Health Care Education/Training Program
PROC: 0BH18EZ Insertion of Endotracheal Airway into Trachea, Via Natural or Artificial Opening Endoscopic (ICD-10-PCS; principal; 2018-03-11)
PROC: 5A1945Z Respiratory Ventilation, 24-96 Consecutive Hours (ICD-10-PCS; principal; 2018-03-11)
PROC: 0BJ08ZZ Inspection of Tracheobronchial Tree, Via Natural or Artificial Opening Endoscopic (ICD-10-PCS; 2018-03-12)
DX: J96.01 Acute respiratory failure with hypoxia (principal); J69.8 Pneumonitis due to inhalation of other solids and liquids; G92 Toxic encephalopathy; B37.0 Candidal stomatitis; D62 Acute posthemorrhagic anemia; F10.230 Alcohol dependence with withdrawal, uncomplicated; E87.2 Acidosis; T85.838A Hemorrhage due to other internal prosthetic devices, implants and grafts, initial encounter; B95.5 Unspecified streptococcus as the cause of diseases classified elsewhere; T51.0X1A Toxic effect of ethanol, accidental (unintentional), initial encounter; Y84.8 Other medical procedures as the cause of abnormal reaction of the patient, or of later complication, without mention of misadventure at the time of the procedure; F10.220 Alcohol dependence with intoxication, uncomplicated; Y90.8 Blood alcohol level of 240 mg/100 ml or more; K70.10 Alcoholic hepatitis without ascites; R60.9 Edema, unspecified; E83.42 Hypomagnesemia; E83.51 Hypocalcemia; I10 Essential (primary) hypertension; J44.9 Chronic obstructive pulmonary disease, unspecified; Z59.0 Homelessness
CPT/HCPCS: 80307; 82435-PO; 82565-PO; 82607-90; 82947-PO; 84132-PO; 84295-PO; 84484-PO; 84520-PO; 85014-PO; 92523-GN; 92526-GN; 92610-GN; 96365; 97116-GP; 97162-GP; 97166-GO; 97530-GO; 97530-GP; 97535-GO; G0480; G8978-GP-CM; G8979-GP-CJ; G8987-GO-CL; G8988-GO-CJ; G8996-GN-CJ; G8997-GN-CH; G9168-GN-CJ; G9169-GN-CJ; G9170-GN-CJ; J0295; J0330; J0360; J0610; J0696; J1200; J1650; J1940; J2060; J2704; J2930; J3010; J3411; J3475; J3480; J7512; Q9967